=== PATIENT | female | born 1965 | race Caucasian/White ===

== ENCOUNTER 2017-05-04 06:19 | Inpatient (IN) | payer OTHER ==
[~2017-05-04] VITALS: Ht 172.7 cm; Wt 66.1 kg
[~2017-05-04 06:19] MED LIST: ACYC400T PO; CHOL5000 PO; EVEN500C3 PO; LEVO.1 PO; MILK200C2 PO; ONDA4TAB7 SL; RANI150T PO
[2017-05-04 06:21] VITALS: BP 137/75; PULSE 79; RESP 15; TEMP 98.6; O2SAT 100
[2017-05-04] MEDS ORDERED: SODIUM CHLOR 0.9% 1000 ML INJ 1,000 ML IV SCH (06:35)
[2017-05-04] MEDS ORDERED: SODIUM CHLORIDE 0.9% FLUSH 10 ML FLUSH IV FLUSH PRN ×2 (06:45→09:45)
[2017-05-04] MEDS ORDERED: ONDANSETRON HCL 4 MG/2 ML VIAL IVP ONE (06:45)
--- NOTE | 2017-05-04 06:46 | PD ---
HPI Chief Complaint: Abdominal Pain Time Seen by Provider: 06:28 Travel History International Travel<30 days: No Contact w/Intl Traveler<30days: No Traveled to known affect area: No History of Present Illness HPI Patient is a 51-year-old female who presents to emergency room complaints of abdominal pain. Reports that on August 02, 2016, she had a cholecystectomy by Dr. Ledesma. Patient reports that her surgery was complicated (laparoscopic which converted to open), reports that they were concerned as she still had multiple gallstones. As per Dr. Vasquez's medical records, after her cholecystectomy, the common bile duct was prominent at 12 mm with findings of pneumobilia and probably choledocholithiasis . Reports that ever since her surgery, she has had abdominal pain. Reports that her abdominal pain has been increasing over the past few weeks. She did follow-up with her primary care doctor, Dr. Kallie Braga in the office yesterday and she had ordered an outpatient ct of abdomen/pelvis with IV contrast for further evaluation of her abdominal pain. Reports that she did have outpatient blood work which showed t.raquel 1.7, alk phos 1486, ast 221, alt 334 from April 28, 2017. Patient here for evaluation of abdominal pain. PFSH Past Medical History Anxiety: Yes Depression: Yes (BECAUSE OF SONS ) Cancer: Yes (THYROID) Cardiovascular Problems: No Chemotherapy: No Diabetes: No Diminished Hearing: No Endocrine: Yes Genitourinary: No Immune Disorder: No Musculoskeletal: No Neurologic: No Psychiatric: Yes Reproductive: No Respiratory: No Radiation Therapy: No Thyroid Disease: Yes Tetanus Vaccination: Unknown Influenza Vaccination: No ?: Not Tubal Ligation: Yes Past Surgical History Endocrine Surgery: Yes (THYROIDECTOMY) Gynecologic Surgery: Yes (TUBAL LIGATION) Social History Alcohol Use: Yes (2-3 NIGHTLY FOR 1 YEAR) Tobacco Use: No Substance Use: No Allergies-Medications (Allergen,Severity, Reaction): Coded Allergies: codeine (Verified Allergy, Severe, 05/04/17) latex (Verified Allergy, Unknown, SKIN IRRITATION, 05/04/17) Reported Meds & Prescriptions Reported Meds & Active Scripts Active Synthroid (Levothyroxine Sodium) 100 Mcg Tab 100 Mcg PO DAILY Acyclovir 400 Mg Tab 1 Tab PO TID Take three times a day for 5 days Reported Ranitidine (Ranitidine HCl) 150 Mg Tab 150 Mg PO BID Review of Systems General / Constitutional: No: Fever Eyes: No: Visual changes HENT: No: Headaches Cardiovascular: No: Chest Pain or Discomfort Respiratory: No: Shortness of Breath Gastrointestinal: Positive: Nausea, Abdominal Pain Genitourinary: No: Dysuria Musculoskeletal: No: Pain Skin: No Rash Neurologic: No: Weakness Psychiatric: No: Depression Endocrine: No: Polydipsia Hematologic/Lymphatic: No: Easy Bruising Physical Exam Narrative GENERAL: mild distress SKIN: Focused skin assessment warm/dry. HEAD: Atraumatic. Normocephalic. EYES: Pupils equal and round. No scleral icterus. No injection or drainage. ENT: No nasal bleeding or discharge. Mucous membranes pink and moist. NECK: Trachea midline. No JVD. CARDIOVASCULAR: Regular rate and rhythm. No murmur appreciated. RESPIRATORY: No accessory muscle use. Clear to auscultation. Breath sounds equal bilaterally. GASTROINTESTINAL: Abdomen soft, diffusely tender with increased tenderness to RUQ MUSCULOSKELETAL: No obvious deformities. No clubbing. No cyanosis. No edema. NEUROLOGICAL: Awake and alert. No obvious cranial nerve deficits. Motor grossly within normal limits. Normal speech. PSYCHIATRIC: Appropriate mood and affect; insight and judgment normal. Data Data Last Documented VS Vital Signs Date Time Temp Pulse Resp B/P (MAP) Pulse Ox O2 Delivery O2 Flow Rate FiO2 05/04/17 06:21 98.6 79 15 137/75 (95) 100 Room Air Orders Orders Complete Blood Count With Diff (05/04/17 06:35) Comprehensive Metabolic Panel (05/04/17 06:35) Lipase (05/04/17 06:35) Prothrombin Time / Inr (Pt) (05/04/17 06:35) Act Partial Throm Time (Ptt) (05/04/17 06:35) Urinalysis - C+S If Indicated (05/04/17 06:35) Ct Abd/Pel W Iv Contrast(Rout) (05/04/17 06:35) Iv Access Insert/Monitor (05/04/17 06:35) Ecg Monitoring (05/04/17 06:35) NPO (05/04/17 06:35) Ondansetron Inj (Zofran Inj) (05/04/17 06:45) Sodium Chlor 0.9% 1000 Ml Inj (Ns 1000 M (05/04/17 06:35) Sodium Chloride 0.9% Flush (Ns Flush) (05/04/17 06:45) Electrocardiogram (05/04/17 06:35) Chest, Single Ap (05/04/17 06:35) Labs Laboratory Tests Test 05/04/17 06:36 White Blood Count 7.7 TH/MM3 Red Blood Count 4.63 MIL/MM3 Hemoglobin 14.4 GM/DL Hematocrit 42.0 % Mean Corpuscular Volume 90.7 FL Mean Corpuscular Hemoglobin 31.1 PG Mean Corpuscular Hemoglobin Concent 34.3 % Red Cell Distribution Width 13.2 % Platelet Count 472 TH/MM3 Mean Platelet Volume 6.8 FL Neutrophils (%) (Auto) 53.6 % Lymphocytes (%) (Auto) 32.8 % Monocytes (%) (Auto) 7.7 % Eosinophils (%) (Auto) 5.5 % Basophils (%) (Auto) 0.4 % Neutrophils # (Auto) 4.1 TH/MM3 Lymphocytes # (Auto) 2.5 TH/MM3 Monocytes # (Auto) 0.6 TH/MM3 Eosinophils # (Auto) 0.4 TH/MM3 Basophils # (Auto) 0.0 TH/MM3 CBC Comment DIFF FINAL Differential Comment MDM Medical Decision Making Medical Screen Exam Complete: Yes Emergency Medical Condition: Yes Interpretation(s) EKG at 0645: NSR at 60bpm, qt/qtc: 427/428, no acute st or t wave changes, non acute ekg Vital Signs Date Time Temp Pulse Resp B/P (MAP) Pulse Ox O2 Delivery O2 Flow Rate FiO2 05/04/17 06:21 98.6 79 15 137/75 (95) 100 Room Air Differential Diagnosis Differential includes choledocholithiasis, pancreatitis, electrolyte abnormality , pneumobilia Narrative Course Patient was placed on a brownfield program coordinator upon arrival to the ER. Lab work including LFT's ordered. Ct of abdomen and pelvis ordered. Patient does not want any narcotic pain medications at this time. Plan to monitor patient. Patient signed out to care of oncoming physician at change of shift Subha Stockton DO May 04, 2017 06:46
[2017-05-04 06:54] LABS: AUTOMATED NEUTROPHIL # 4.1 TH/MM3 (1.8-7.7); BASOPHIL % 0.4 % (0.0-2.0); EOSINOPHIL # 0.4 TH/MM3 (0-0.4); EOSINOPHIL % 5.5 % (0.0-4.0); HEMO FLAGS DIFF FINAL; LYMPH % 32.8 % (9.0-44.0); LYMPHOCYTE # 2.5 TH/MM3 (1.0-4.8); MEAN CELL VOLUME 90.7 FL (80.0-100.0); MEAN CORPUSCULAR HEMOGLOBIN 31.1 PG (27.0-34.0); MEAN CORPUSCULAR HGB CONC 34.3 % (32.0-36.0); MONO % 7.7 % (0.0-8.0); NEUT % 53.6 % (16.0-70.0); PLATELET COUNT 472 TH/MM3 (150-450); RED BLOOD COUNT 4.63 MIL/MM3 (4.00-5.30); RED CELL DISTRIBUTION WIDTH 13.2 % (11.6-17.2); WHITE BLOOD COUNT 7.7 TH/MM3 (4.0-11.0)
--- NOTE | 2017-05-04 06:58 | RADRPT ---
EXAM DATE/TIME: 05/04/2017 06:42 [facility] COMPARISON: No previous studies available for comparison. INDICATIONS : Abdominal pain. MEDICAL HISTORY : Carcinoma, thyroid. Hypothyroidism. SURGICAL HISTORY : Cholecystectomy. Tubal ligation. thyroidectomy, ENCOUNTER: Initial ACUITY: 1 day PAIN SCORE: 6/10 LOCATION: Bilateral upper quadrant FINDINGS: A single view of the chest demonstrates the lungs to be symmetrically aerated without evidence of mas s, infiltrate or effusion. The cardiomediastinal contours are unremarkable. Osseous structures are intact. CONCLUSION: Normal examination. Mao Draper Jr., MD on May 04, 2017 at 6:56 Board Certified Radiologist. This report was verified electronically.
[2017-05-04 07:06] LABS: APTT (PATIENT) 25.6 SEC (24.3-30.1); INTERNATIONAL NORMALIZED RATIO 0.9 RATIO; PROTHROMBIN TIME - PATIENT 10.3 SEC (9.8-11.6)
[2017-05-04 07:13] LABS: BLOOD, URINE NEG (NEG); COMMENT (UR) CULT NOT INDICATED; CULTURE IF INDICATED CULT NOT INDICATED; GLUCOSE,URINE NEG (NEG); KETONE, URINE NEG (NEG); MUCUS URINE FEW /lpf (OCC); NITRITE,URINE NEG (NEG); SQUAMOUS EPITHELIAL CELL URINE 1 /hpf (0-5); URINE COLOR YELLOW (YELLW/STRAW)
[2017-05-04 07:14] LABS: ALT (GPT) 388 U/L (10-53); ANION GAP 7 MEQ/L (5-15); AST (GOT) 353 U/L (15-37); BICARBONATE 29.2 MEQ/L (21.0-32.0); BLOOD UREA NITROGEN 13 MG/DL (7-18); CHLORIDE 101 MEQ/L (98-107); GLOMERULAR FILTRATION RATE 91 ML/MIN (>89); POTASSIUM 3.7 MEQ/L (3.5-5.1); SODIUM (NA) 137 MEQ/L (136-145)
[2017-05-04 07:29] LABS: ALKALINE PHOSPHATASE 1485 U/L (45-117); TOTAL BILIRUBIN ADULT 1.8 MG/DL (0.2-1.0)
[2017-05-04] MEDS ORDERED: IOHEXOL 350 MG/ML 10 ML VIAL (for RAD DIAG) IVCONTRAST ONE (07:45)
--- NOTE | 2017-05-04 08:01 | RADRPT ---
EXAM DATE/TIME: 05/04/2017 07:42 [facility] COMPARISON: CT ABDOMEN & PELVIS W/O CONTRAST, November 15, 2015, 23:11. INDICATIONS : Upper abdominal pain and vomiting. IV CONTRAST: 96 cc Omnipaque 350 (iohexol) IV ORAL CONTRAST: No oral contrast ingested. RADIATION DOSE: 6.36 CTDIvol (mGy) MEDICAL HISTORY : Carcinoma, thyroid. SURGICAL HISTORY : Cholecystectomy. Thyroidectomy.Hysterectomy. ENCOUNTER: Initial ACUITY: 3 days PAIN SCALE: 6/10 LOCATION: Bilateral upper quadrant TECHNIQUE: Volumetric scanning of the abdomen and pelvis was performed. Using automated exposure control and ad justment of the mA and/or kV according to patient size, radiation dose was kept as low as reasonably achievable to obtain optimal diagnostic quality images. DICOM format image data is available electro nically for review and comparison. FINDINGS: LOWER LUNGS: The visualized lower lungs are clear. LIVER: Homogeneous density without lesion. There is dilation of the biliary tree. Status post cholecystecto my. There are several stones in the distal common bile duct measuring 13 and 10 mm. Common bile duct is dilated at 1.6 cm. SPLEEN: Normal size without lesion. PANCREAS: Within normal limits. KIDNEYS: Normal in size and shape. There is no mass, stone or hydronephrosis. ADRENAL GLANDS: Within normal limits. VASCULAR: There is no aortic aneurysm. BOWEL/MESENTERY: IT scattered diverticula. No diverticulitis. There is no free intraperitoneal air or fluid. ABDOMINAL WALL: Within normal limits. RETROPERITONEUM: There is no lymphadenopathy. BLADDER: No wall thickening or mass. There is air within the bladder. REPRODUCTIVE: Cystic lesions are seen within the right anterior pelvis measuring 7.1 x 5.6 cm area within the poste rior pelvis measuring 9.8 x 7.1 cm. Minimal debris or calcification seen within the posterior cystic lesion. INGUINAL: There is no lymphadenopathy or hernia. MUSCULOSKELETAL: Within normal limits for patient age. CONCLUSION: 1. Intra and extrahepatic biliary ductal dilatation secondary to several stones in the common bile du ct consistent with choledocholithiasis. 2. Bilateral cystic lesions likely ovarian in etiology. These are relatively unchanged. 3. A few scattered diverticula. Aries Ennis MD on May 04, 2017 at 7:53 Board Certified Radiologist. This report was verified electronically.
--- NOTE | 2017-05-04 08:13 | PD ---
Physical Exam Date Seen by Provider: May 04, 2017 Time Seen by Provider: 08:10 Narrative 51-year-old female came to the emergency room with right upper quadrant abdominal pain that has been there for past few months since her cholecystectomy but for past couple days has been worse. She had seen her primary care yesterday about it and had a CAT scan ordered as an outpatient. However last night the pain got really worse when she decided to come into the emergency room. She was seen by the previous ER physician. Please refer to her notes regarding the details of her history and physical. Concern was biliary obstruction from further stones. Sign out was to follow-up on the low test as well as CAT scan report. The blood test result and the report just came back. Patient has significantly elevated LFTs and alkaline phosphatase. CAT scan shows several stones in the common bile duct with dilated biliary tree. I have ordered an MRCP. I put a call out for GI specialist and hospitalist for admission. I discussed this with the patient and explained to her the current situation. She understands. She says that after her last cholecystectomy she had a stent put in that was there for 3 months and then taken out. She understands that she may have ERCP during the hospitalization and is okay with that. She says her pain comes and goes and currently it is better. Patient has received pain medications. Data Data Last Documented VS Vital Signs Date Time Temp Pulse Resp B/P (MAP) Pulse Ox O2 Delivery O2 Flow Rate FiO2 05/04/17 06:21 98.6 79 15 137/75 (95) 100 Room Air Orders Orders Complete Blood Count With Diff (05/04/17 06:35) Comprehensive Metabolic Panel (05/04/17 06:35) Lipase (05/04/17 06:35) Prothrombin Time / Inr (Pt) (05/04/17 06:35) Act Partial Throm Time (Ptt) (05/04/17 06:35) Urinalysis - C+S If Indicated (05/04/17 06:35) Ct Abd/Pel W Iv Contrast(Rout) (05/04/17 06:35) Iv Access Insert/Monitor (05/04/17 06:35) Ecg Monitoring (05/04/17 06:35) NPO (05/04/17 06:35) Ondansetron Inj (Zofran Inj) (05/04/17 06:45) Sodium Chlor 0.9% 1000 Ml Inj (Ns 1000 M (05/04/17 06:35) Electrocardiogram (05/04/17 06:35) Chest, Single Ap (05/04/17 06:35) Iohexol 350 Inj (Omnipaque 350 Inj) (05/04/17 07:45) Admit Order (Ed Use Only) (05/04/17 08:27) Labs Laboratory Tests Test 05/04/17 06:36 White Blood Count 7.7 TH/MM3 Red Blood Count 4.63 MIL/MM3 Hemoglobin 14.4 GM/DL Hematocrit 42.0 % Mean Corpuscular Volume 90.7 FL Mean Corpuscular Hemoglobin 31.1 PG Mean Corpuscular Hemoglobin Concent 34.3 % Red Cell Distribution Width 13.2 % Platelet Count 472 TH/MM3 Mean Platelet Volume 6.8 FL Neutrophils (%) (Auto) 53.6 % Lymphocytes (%) (Auto) 32.8 % Monocytes (%) (Auto) 7.7 % Eosinophils (%) (Auto) 5.5 % Basophils (%) (Auto) 0.4 % Neutrophils # (Auto) 4.1 TH/MM3 Lymphocytes # (Auto) 2.5 TH/MM3 Monocytes # (Auto) 0.6 TH/MM3 Eosinophils # (Auto) 0.4 TH/MM3 Basophils # (Auto) 0.0 TH/MM3 CBC Comment DIFF FINAL Differential Comment Prothrombin Time 10.3 SEC Prothromb Time International Ratio 0.9 RATIO Activated Partial Thromboplast Time 25.6 SEC Urine Color YELLOW Urine Turbidity CLEAR Urine pH 7.0 Urine Specific [place] 1.013 Urine Protein NEG mg/dL Urine Glucose (UA) NEG mg/dL Urine Ketones NEG mg/dL Urine Occult Blood NEG Urine Nitrite NEG Urine Bilirubin NEG Urine Urobilinogen 2.0 MG/DL Urine Leukocyte Esterase NEG Urine Squamous Epithelial Cells 1 /hpf Urine Mucus FEW /lpf Microscopic Urinalysis Comment CULT NOT INDICATED Blood Urea Nitrogen 13 MG/DL Creatinine 0.68 MG/DL Random Glucose 99 MG/DL Total Protein 8.5 GM/DL Albumin 3.7 GM/DL Calcium Level 9.1 MG/DL Alkaline Phosphatase 1485 U/L Aspartate Amino Transf (AST/SGOT) 353 U/L Alanine Aminotransferase (ALT/SGPT) 388 U/L Total Bilirubin 1.8 MG/DL Sodium Level 137 MEQ/L Potassium Level 3.7 MEQ/L Chloride Level 101 MEQ/L Carbon Dioxide Level 29.2 MEQ/L Anion Gap 7 MEQ/L Estimat Glomerular Filtration Rate 91 ML/MIN Lipase 337 U/L MDM Supervised Visit with DONNA: No Narrative Course 8:32 AM patient would be going for ERCP today as per the GI specialist. I spoke with Dr. Garcia who wants to keep her nothing by mouth and will take her for ERCP this morning. Physician Communication Physician Communication Dr. Garcia Diagnosis Primary Impression: Choledocholithiasis Additional Impressions: Obstructive jaundice Elevated LFTs Intractable abdominal pain Admitting Information Admitting Physician Requests: Admit Lety Javier MD May 04, 2017 08:13
[2017-05-04 08:30] VITALS: BP 136/77; PULSE 67; RESP 19; O2SAT 98
--- NOTE | 2017-05-04 08:56 | PD.CONS ---
HPI History of Present Illness This is a 51 year old female who was hospitalized for choledocholithiasis back in November of 2015. She underwent ERCP with sphincterotomy, dilation of ampulla, stone removals by balloon and a basket, and stent placement (11/16/15)---> CBD impacted with stones. She then underwent Lap cholecystectomy converted to open cholecystectomy with common duct exploratory and extraction of stones. Placement of T tube with intraoperative T tube cholangiogram. She then had an ERCP with stent removal (01/19/17)---> stent removal, normal cholangiogram, normal pancreatogram. She reports that she has had intermittent abdominal pain with nausea/vomiting since having her gallbladder removed. She attributed this to the foods she was eating and has been trying to adjust her diet. She was having episodes once a month, but for the past 3 months, she has been having them more frequently, about twice a week. She does have intermittent fevers with this. She has lost 180-140 lbs during this time. She had an episode on Monday and took benadryl and she reports that this actually helped, but started again early this morning around 2:45 am. She describes her pain as a stabbing pain in the RUQ that radiates to her back. This is aggravated by food intake or taking a deep breath. She reports that she has had alternating constipation, diarrhea. She also has associated fevers and chills. She was recently seen by her PCP and found to have elevated LFTs. She was in the process of getting a CT scan arranged, but was told to come to the hospital if her symptoms resolved and therefore when her symptoms returned, she presented to the ER for further evaluation. (Colleen Bass) COUNT INCLUDES THE [facility] Past Medical History Cholelithiasis/choledocholithiasis Malignant goiter Hypothyroidism after thyroidectomy Past Surgical History Thyroidectomy Colonoscopy Cholecystectomy Left meniscus repair Tubal ligation (Colleen Bass) Coded Allergies: codeine (Verified Allergy, Severe, 05/04/17) latex (Verified Allergy, Unknown, SKIN IRRITATION, 05/04/17) Medications Allergies Coded Allergies Type Severity Reaction Last Updated Verified codeine Allergy Severe 05/04/17 Yes latex Allergy Unknown SKIN IRRITATION 05/04/17 Yes Active Scripts Medications Dose Route/Sig Max Daily Dose Days Date Category Dose Instructions Ranitidine (Ranitidine HCl) 150 Mg Tab 150 Mg PO BID 05/03/17 Reported Synthroid (Levothyroxine Sodium) 100 Mcg Tab 100 Mcg PO DAILY 02/22/17 Rx Acyclovir 400 Mg Tab 1 Tab PO TID 02/22/17 Rx Take three times a day for 5 days Family History Father passed at age 80, complications after hip surgery Mother alive and well at 81 Social History No tobacco. ETOH use, 2x a week No illicit drug use. (BassColleen) Review of Systems Constitutional: COMPLAINS OF: Fatigue, Fever, Weight loss Respiratory: COMPLAINS OF: Shortness of breath, DENIES: Cough Cardiovascular: DENIES: Chest pain Gastrointestinal: COMPLAINS OF: Abdominal pain, Constipation, Diarrhea, Nausea Musculoskeletal: COMPLAINS OF: Back pain Integumentary: COMPLAINS OF: Pruritus, Jaundice Neurologic: DENIES: Headache Psychiatric: DENIES: Confusion (Colleen Bass) GI Exam Vitals I&O Vital Signs Date Time Temp Pulse Resp B/P (MAP) Pulse Ox O2 Delivery O2 Flow Rate FiO2 05/04/17 06:21 98.6 79 15 137/75 (95) 100 Room Air Imaging Last Impressions Chest X-Ray 05/04/1735 Signed Impressions: Service Date/Time: , May 04, 2017 06:42 - CONCLUSION: Normal examination. Mao Draper Jr., MD Abdomen/Pelvis CT 05/04/1735 Signed Impressions: Service Date/Time: , May 04, 2017 07:42 - CONCLUSION: 1. Intra and extrahepatic biliary ductal dilatation secondary to several stones in the common bile duct consistent with choledocholithiasis. 2. Bilateral cystic lesions likely ovarian in etiology. These are relatively unchanged. 3. A few scattered diverticula. Aries Ennis MD Laboratory Test 05/04/17 06:36 White Blood Count 7.7 TH/MM3 Red Blood Count 4.63 MIL/MM3 Hemoglobin 14.4 GM/DL Hematocrit 42.0 % Mean Corpuscular Volume 90.7 FL Mean Corpuscular Hemoglobin 31.1 PG Mean Corpuscular Hemoglobin Concent 34.3 % Red Cell Distribution Width 13.2 % Platelet Count 472 TH/MM3 Mean Platelet Volume 6.8 FL Neutrophils (%) (Auto) 53.6 % Lymphocytes (%) (Auto) 32.8 % Monocytes (%) (Auto) 7.7 % Eosinophils (%) (Auto) 5.5 % Basophils (%) (Auto) 0.4 % Neutrophils # (Auto) 4.1 TH/MM3 Lymphocytes # (Auto) 2.5 TH/MM3 Monocytes # (Auto) 0.6 TH/MM3 Eosinophils # (Auto) 0.4 TH/MM3 Basophils # (Auto) 0.0 TH/MM3 CBC Comment DIFF FINAL Differential Comment Prothrombin Time 10.3 SEC Prothromb Time International Ratio 0.9 RATIO Activated Partial Thromboplast Time 25.6 SEC Urine Color YELLOW Urine Turbidity CLEAR Urine pH 7.0 Urine Specific [place] 1.013 Urine Protein NEG mg/dL Urine Glucose (UA) NEG mg/dL Urine Ketones NEG mg/dL Urine Occult Blood NEG Urine Nitrite NEG Urine Bilirubin NEG Urine Urobilinogen 2.0 MG/DL Urine Leukocyte Esterase NEG Urine Squamous Epithelial Cells 1 /hpf Urine Mucus FEW /lpf Microscopic Urinalysis Comment CULT NOT INDICATED Blood Urea Nitrogen 13 MG/DL Creatinine 0.68 MG/DL Random Glucose 99 MG/DL Total Protein 8.5 GM/DL Albumin 3.7 GM/DL Calcium Level 9.1 MG/DL Alkaline Phosphatase 1485 U/L Aspartate Amino Transf (AST/SGOT) 353 U/L Alanine Aminotransferase (ALT/SGPT) 388 U/L Total Bilirubin 1.8 MG/DL Sodium Level 137 MEQ/L Potassium Level 3.7 MEQ/L Chloride Level 101 MEQ/L Carbon Dioxide Level 29.2 MEQ/L Anion Gap 7 MEQ/L Estimat Glomerular Filtration Rate 91 ML/MIN Lipase 337 U/L Physical Examination HEENT: Normocephalic; atraumatic; Mild jaundice. CHEST: CTA CARDIAC: RRR ABDOMEN: Soft, nondistended, mild RUQ tenderness; no hepatosplenomegaly; bowel sounds are present in all four quadrants. EXTREMITIES: No clubbing, cyanosis, or edema. SKIN: Normal; no rash; mild jaundice. CLOCK REPAIRER: No focal deficits; alert and oriented times three. (Colleen Bass) Assessment and Plan Plan ASSESSMENT: - Choledocholithiasis with RUQ pain, n/v. She has a hx of choledocholithiasis. S/P ERCP with sphincterotomy, dilation of ampulla, stone removals by balloon and a basket, and stent placement (11/16/15)---> CBD impacted with stones. S/P Lap cholecystectomy converted to open cholecystectomy with common duct exploratory and extraction of stones. Placement of T tube with intraoperative T tube cholangiogram. S/P rpt. ERCP with stent removal (01/19/17)---> stent removal, normal cholangiogram, normal pancreatogram. She has had intermittent RUQ pain, n/v since her cholecystectomy. She recently was found to have elevated LFTs in obstructive pattern and was going to have CT as outpt, but came to the ER when she developed RUQ pain. T. Bili 1.8, AST 353, ALT 388, Alk Phosph 1485. WBC 7.7. - GERD. Add Protonix - Hypothyroidism, s/p thyroidectomy. Per attending. PLAN: - Plan for ERCP with possible sphincterotomy, possible stent placement - Obtain consent - NPO - Protonix 40mg IV daily - Zofran prn - CBC, CMP in am - Supportive care - Further recommendations to follow based on results of above - Pt seen and examined by Dr. Garcia and myself and this note is written on his behalf (Colleen Bass) Physician Comments Patient seen and examined Agree with above Continue with current supportive care Monitor labs Plan for ERCP (Jorje Garcia MD) Colleen Bass May 04, 2017 08:56 Jorje Garcia MD May 04, 2017 15:01
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
[2017-05-04] MEDS ORDERED: MORPHINE SULFATE 4 MG/ML INJ IV PRN (09:45)
[2017-05-04] MEDS ORDERED: ONDANSETRON HCL 4 MG/2 ML VIAL IV PRN (09:45)
[2017-05-04] MEDS ORDERED: diphenhydrAMINE HCL 50 MG/ML VIAL IV PRN (09:45)
[2017-05-04] MEDS ORDERED: KETOROLAC TROMETHAMINE 30 MG/ML (IVP) VIAL IVP PRN (09:45)
[2017-05-04] MEDS ORDERED: ACETAMINOPHEN 325 MG TAB PO PRN (09:45)
[2017-05-04] MEDS: SODIUM CHLOR 0.9% 1000 ML INJ 1,000 ML IV SCH ×2 (10:20→20:25)
[2017-05-04] MEDS: PANTOPRAZOLE SODIUM 40 MG VIAL IV PUSH SCH (10:21)
[2017-05-04 11:30] VITALS: BP 131/68; PULSE 69; RESP 18; O2SAT 100
[2017-05-04] MEDS ORDERED: PROPOFOL 200 MG/20 ML AMP IV ONE (12:00)
[2017-05-04 13:07] VITALS: BP 120/57; PULSE 59; RESP 20; TEMP 97.8; O2SAT 98
[2017-05-04] MEDS ORDERED: ONDANSETRON HCL 4 MG/2 ML VIAL IV PUSH PRN (14:00)
--- NOTE | 2017-05-04 16:10 | PD.PROCEDR ---
GI Procedure REFERRING PHYSICIAN Dr. Herrera PROCEDURE PERFORMED ERCP with balloon extraction and stent placement INDICATION FOR PROCEDURE Elevated liver function tests, choledocholithiasis PROCEDURE: The procedure, risks and benefits were discussed with Ms. Lopez and informed consent was obtained. Anesthesia sedated her with Diprivan. She was placed in the left lateral decubitus position. ERCP: Patient was placed in a prone position. The Pentax videoscope was introduced through the oropharynx and advanced to the second portion of the duodenum where the ampula was identified. FINDINGS: The ampulla appeared to have had a prior sphincterotomy but otherwise unremarkable The common bile duct appeared to be dilated with filling defects initially a 12 mm balloon was used to try and extract the filling defects this was not very helpful and so I went to an 8 mm balloon and with that I was able to remove some debris and pieces of small stone and subsequently the obstructive cholangiogram showed no distinct filling defects. My feeling is the patient has more sludge than choledocholithiasis and it may flattened out and as such I have opted to place a 10 [place] 9 cm stent to allow for drainage and to monitor labs and based on her hospital course and future labs will make a determination as to our next best step obviously she will need to have a repeat ERCP in about 3 months The intrahepatics were unremarkable ESTIMATED BLOOD LOSS: None SPECIMENS REMOVED: None COMPLICATIONS: None IMPRESSION: Choledocholithiasis PLAN: Monitor labs Advance diet Recommend ERCP in 3 months Follow-up with GI post discharge Jorje Garcia MD May 04, 2017 16:10
--- NOTE | 2017-05-04 16:53 | RADRPT ---
EXAM DATE/TIME: 05/04/2017 15:39 [facility] COMPARISON: CT ABDOMEN & PELVIS W CONTRAST, May 04, 2017, 7:42. CHEST SINGLE AP, May 04, 2017, 6:42. INDICATIONS : Obstruction; stent placement. FLUORO TIME: 5.0 minutes IMAGE COUNT: 4 CONTRAST: Instilled by Ordering Physician MEDICAL HISTORY : Carcinoma, thyroid. SURGICAL HISTORY : Cholecystectomy. Thyroidectomy.Hysterectomy. ENCOUNTER: Initial ACUITY: 1 day PAIN SCORE: Non-responsive. LOCATION: Abdomen. FINDINGS: An ERCP was performed by the ordering physician. Initial images demonstrate stones within the common bile duct. The common bile duct is dilated. The intrahepatic ducts are dilated. The final images demonstrate stone extraction with a well-positioned internal biliary stent seen acro ss the distal common duct and ampulla. CONCLUSION: ERCP as above. Jose Antonio Morales MD on May 04, 2017 at 16:49 Board Certified Radiologist. This report was verified electronically.
--- NOTE | 2017-05-04 17:08 | EKG ---
Date Performed: 05/04/2017 Time Performed: 06:45:25 PTAGE: 51 years EKG: Sinus rhythm MODERATE INTRAVENTRICULAR CONDUCTION DELAY BORDERLINE ECG PREVIOUS TRACING : 11/15/2015 20.10 Compared to prior tracing no significant change DOCTOR: Maury Son Interpretating Date/Time 05/04/2017 17:07:13
[2017-05-04 17:55] VITALS: BP 122/75; PULSE 68; RESP 20; TEMP 98.2; O2SAT 99
[2017-05-04] MEDS ORDERED: IOHEXOL 350 MG/ML 50 ML BTL (for RAD DIAG) IVCONTRAST ONE (18:07)
[2017-05-04 20:04] VITALS: BP 110/55; PULSE 77; RESP 16; TEMP 100.1; O2SAT 99
[2017-05-04] MEDS: SODIUM CHLORIDE 0.9% FLUSH 10 ML FLUSH IV FLUSH SCH (20:23)
[2017-05-04] MEDS: KETOROLAC TROMETHAMINE 30 MG/ML (IVP) VIAL IVP PRN (20:24)
[2017-05-05 00:10] VITALS: BP 105/60; PULSE 79; RESP 16; TEMP 99; O2SAT 97
[2017-05-05] MEDS: KETOROLAC TROMETHAMINE 30 MG/ML (IVP) VIAL IVP PRN (03:53)
[2017-05-05 04:13] VITALS: BP 112/54; PULSE 63; RESP 16; TEMP 98.1; O2SAT 97
[2017-05-05] MEDS: SODIUM CHLOR 0.9% 1000 ML INJ 1,000 ML IV SCH (05:43)
[2017-05-05] MEDS ORDERED: LEVOTHYROXINE SODIUM 100 MCG TAB PO SCH (06:00)
[2017-05-05 07:45] LABS: AUTOMATED NEUTROPHIL # 4.8 TH/MM3 (1.8-7.7); BASOPHIL % 0.2 % (0.0-2.0); EOSINOPHIL # 0.2 TH/MM3 (0-0.4); EOSINOPHIL % 3.1 % (0.0-4.0); HEMATOCRIT 36.5 % (35.0-46.0); HEMO FLAGS DIFF FINAL; LYMPH % 17.3 % (9.0-44.0); LYMPHOCYTE # 1.2 TH/MM3 (1.0-4.8); MEAN CELL VOLUME 89.5 FL (80.0-100.0); MEAN CORPUSCULAR HEMOGLOBIN 30.3 PG (27.0-34.0); MEAN CORPUSCULAR HGB CONC 33.8 % (32.0-36.0); MONO % 7.7 % (0.0-8.0); NEUT % 71.7 % (16.0-70.0); PLATELET COUNT 313 TH/MM3 (150-450); RED BLOOD COUNT 4.08 MIL/MM3 (4.00-5.30); RED CELL DISTRIBUTION WIDTH 12.9 % (11.6-17.2); WHITE BLOOD COUNT 6.8 TH/MM3 (4.0-11.0)
[2017-05-05 08:00] VITALS: BP 102/58; PULSE 60; RESP 18; TEMP 98.1; O2SAT 98
[2017-05-05 08:31] LABS: ALKALINE PHOSPHATASE 1066 U/L (45-117); ALT (GPT) 262 U/L (10-53); ANION GAP 6 MEQ/L (5-15); AST (GOT) 128 U/L (15-37); BICARBONATE 27.8 MEQ/L (21.0-32.0); BLOOD UREA NITROGEN 7 MG/DL (7-18); CHLORIDE 106 MEQ/L (98-107); GLOMERULAR FILTRATION RATE 114 ML/MIN (>89); POTASSIUM 3.5 MEQ/L (3.5-5.1); SODIUM (NA) 140 MEQ/L (136-145); TOTAL BILIRUBIN ADULT 1.5 MG/DL (0.2-1.0)
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
[2017-05-05 12:00] VITALS: BP 124/64; PULSE 61; RESP 18; TEMP 98.1; O2SAT 98
[2017-05-05] MEDS: PANTOPRAZOLE SODIUM 40 MG VIAL IV PUSH SCH (12:13)
[2017-05-05] MEDS: SODIUM CHLORIDE 0.9% FLUSH 10 ML FLUSH IV FLUSH SCH (12:14)
--- NOTE | 2017-05-05 14:48 | HHI.DCPOC ---
Discharge Care Plan Diagnosis: (1) Choledocholithiasis (2) Intractable abdominal pain (3) Elevated LFTs (4) Hypothyroid Goals to Promote Your Health * To prevent worsening of your condition and complications, please follow up with your GI Dr Garcia in one week, and your primary care provider in one week. * To maintain your health at the optimal level, please take your medications as prescribed. Also, decrease your intake of fats and cholesterol. Directions to Meet Your Goals Take your medications as prescribed Follow your dietary instruction Follow activity as directed Keep your appointments as scheduled Take your immunizations and boosters as scheduled If your symptoms worsen call your PCP, if no PCP go to Urgent Care Center or Emergency Room Smoking is Dangerous to Your Health. Avoid second hand smoke Call the 24-hour hour crisis hotline for domestic abuse at Romario Mares MD R1 May 05, 2017 14:48
--- NOTE | 2017-05-05 15:29 | HHI.GIFU ---
Subjective Remarks Resting in bed. States she feels so much better and would like to go home. No n/v. Had a fever last night, but no further episodes. Tolerating diet. (Colleen Bass) Objective Vitals I&O Vital Signs Date Time Temp Pulse Resp B/P (MAP) Pulse Ox O2 Delivery O2 Flow Rate FiO2 05/05/17 12:00 98.1 61 18 124/64 (84) 98 05/05/17 08:00 98.1 60 18 102/58 (73) 98 05/05/17 08:00 96 Room Air 05/05/17 04:13 98.1 63 16 112/54 (73) 97 05/05/17 00:10 99.0 79 16 105/60 (75) 97 05/04/17 20:04 100.1 77 16 110/55 (73) 99 05/04/17 20:00 Room Air 05/04/17 17:55 98.2 68 20 122/75 (91) 99 05/04/17 17:00 Room Air 05/04/17 16:35 97.7 58 18 119/67 (84) 97 05/04/17 16:04 97.7 68 18 126/83 (97) 97 I/O 05/04/17 05/04/17 05/04/17 05/05/17 05/05/17 05/05/17 07:00 15:00 23:00 07:00 15:00 23:00 Intake Total 1000 ml 1600 ml 1480 ml Output Total 750 ml Balance 1000 ml 1600 ml 730 ml Intake Oral 480 ml IV Total 1000 ml 1000 ml 1000 ml Other 600 ml Output Urine Total 750 ml # Voids 1 # Bowel Movements 0 Laboratory Laboratory Tests Test 05/05/17 06:39 White Blood Count 6.8 Red Blood Count 4.08 Hemoglobin 12.4 Hematocrit 36.5 Mean Corpuscular Volume 89.5 Mean Corpuscular Hemoglobin 30.3 Mean Corpuscular Hemoglobin Concent 33.8 Red Cell Distribution Width 12.9 Platelet Count 313 Mean Platelet Volume 7.6 Neutrophils (%) (Auto) 71.7 Lymphocytes (%) (Auto) 17.3 Monocytes (%) (Auto) 7.7 Eosinophils (%) (Auto) 3.1 Basophils (%) (Auto) 0.2 Neutrophils # (Auto) 4.8 Lymphocytes # (Auto) 1.2 Monocytes # (Auto) 0.5 Eosinophils # (Auto) 0.2 Basophils # (Auto) 0.0 CBC Comment DIFF FINAL Differential Comment Blood Urea Nitrogen 7 Creatinine 0.56 Random Glucose 85 Total Protein 6.3 Albumin 2.8 Calcium Level 8.0 Alkaline Phosphatase 1066 Aspartate Amino Transf (AST/SGOT) 128 Alanine Aminotransferase (ALT/SGPT) 262 Total Bilirubin 1.5 Sodium Level 140 Potassium Level 3.5 Chloride Level 106 Carbon Dioxide Level 27.8 Anion Gap 6 Estimat Glomerular Filtration Rate 114 Imaging Last Impressions Chest X-Ray 05/04/1735 Signed Impressions: Service Date/Time: April 06:42 - CONCLUSION: Normal examination. Mao Draper Jr., MD Abdomen/Pelvis CT 05/04/1735 Signed Impressions: Service Date/Time: , May 04, 2017 07:42 - CONCLUSION: 1. Intra and extrahepatic biliary ductal dilatation secondary to several stones in the common bile duct consistent with choledocholithiasis. 2. Bilateral cystic lesions likely ovarian in etiology. These are relatively unchanged. 3. A few scattered diverticula. Aries Ennis MD GI Procedure 05/04/17 0000 Signed Impressions: Service Date/Time: April 15:39 - CONCLUSION: ERCP as above. Jose Antonio Morales MD Physical Exam HEENT: Normocephalic; atraumatic; no jaundice. CHEST: CTA CARDIAC: RRR ABDOMEN: Soft, nondistended, nontender; no hepatosplenomegaly; bowel sounds are present in all four quadrants. EXTREMITIES: No clubbing, cyanosis, or edema. SKIN: Normal; no rash; no jaundice. HOT DIP GALVANIZER: No focal deficits; alert and oriented times three. (Colleen Bass [facility]) Assessment and Plan Plan ASSESSMENT: - Choledocholithiasis with RUQ pain, n/v. She has a hx of choledocholithiasis. S/P ERCP with sphincterotomy, dilation of ampulla, stone removals by balloon and a basket, and stent placement (11/16/15)---> CBD impacted with stones. S/P Lap cholecystectomy converted to open cholecystectomy with common duct exploratory and extraction of stones. Placement of T tube with intraoperative T tube cholangiogram. S/P rpt. ERCP with stent removal (01/19/17)---> stent removal, normal cholangiogram, normal pancreatogram. She has had intermittent RUQ pain, n/v since her cholecystectomy. She recently was found to have elevated LFTs in obstructive pattern and was going to have CT as outpt, but came to the ER when she developed RUQ pain. S/P ERCP with balloon extraction and stent (05/04/17)---> Choledocholithiasis, s/p stent placement. Will need repeat ERCP 3 months. She is feeling much better, no abdominal pain. Tolerating diet. Wants to go home. LFTs improved. T. Bili 1.5, AST 128, ALT 262, Alk PHosph 1066. - GERD. Protonix - Hypothyroidism, s/p thyroidectomy. Per attending. PLAN: - Okay to d/c home from GI standpoint - ARIANE - PPI - FU GARY 2 weeks - Rpt ERCP in 3 months - Pt seen and examined by Dr. Garcia and myself and this note is written on his behalf (Colleen Bass) Physician Comments Patient seen and examined Agree with above Continue with current supportive care Monitor labs (Jorje Garcia MD) Colleen Bass May 05, 2017 15:29 Jorje Garcia MD May 05, 2017 19:22
[2017-05-05 16:00] VITALS: BP 102/51; PULSE 68; RESP 18; TEMP 97.9; O2SAT 95
[2017-05-16] MEDS ORDERED: ONDA4TAB7 SL (16:06)
[2017-05-16] MEDS ORDERED: DICY10 PO (16:06)
[2017-05-16] MEDS ORDERED: MIRA3350 PO (16:06)
[2017-05-25] MEDS ORDERED: SYNT88TA PO (15:27)
== END 2017-05-05 18:02 | disposition home or self-care (01) | DRG 395 ==
LOC: NEPE 06:19 → NEDA 08:28 → N04B 12:15
PROVIDERS: ADMIT Family Medicine; ATTEND Family Medicine
PROC: 0F9980Z Drainage of Common Bile Duct with Drainage Device, Via Natural or Artificial Opening Endoscopic (ICD-10-PCS; 2017-05-04)
PROC: 0FC98ZZ Extirpation of Matter from Common Bile Duct, Via Natural or Artificial Opening Endoscopic (ICD-10-PCS; principal; 2017-05-04 15:07)
DX: K91.86 Retained cholelithiasis following cholecystectomy (principal); F32.9 Major depressive disorder, single episode, unspecified; E89.0 Postprocedural hypothyroidism; K21.9 Gastro-esophageal reflux disease without esophagitis; F41.9 Anxiety disorder, unspecified; R63.4 Abnormal weight loss
CPT/HCPCS: 71010; 74177; 74330; 80053; 81001; 83690; 85025; 85610; 85730; 93005; 96361; 96374; C1769; C2625; C9113; J1885; J2405; J3010; J7030; Q9967